=== PATIENT | female | born 1960 | race Caucasian/White ===

== ENCOUNTER 2025-03-02 10:13 | Outpatient (REF) | payer MEDICARE, SELFPAY ==
--- OUTSIDE RECORDS SUMMARY | 2025-03-02 09:30 | XMS_ITS | Encounter Summary ---
Author Organization [employer] Address [address] [place] [address] 7 [place] [address] Care Team Providers Care Logging Truck Driver Name Role Phone Fang Young MD Primary Care Provider [phone] Reason for Referral * Imaging (Routine) - Closed Specialty Diagnoses / Procedures Referred By Leonor bui Referred To Contact Radiology Diagnoses Encounter for screening mammogram for malignant neoplasm of breast Procedures BI Mammogram Screening Tomosynthesis Bilateral Fang Young MD [address] [place] [address] Phone: tel: fax: [address] Phone: tel: fax: Referral ID Status Reason Start Date Expiration Date Visits Re quested Visits Authorized [id number] Closed 03/02/2025 03/02/2026 1 1 * Consultation (Routine) - Authorized Specialty Diagnoses / Procedures Referred By Leonor bui Referred To Contact Nutrition Diagnoses Class 2 severe obesity due to excess calories with serious comorbidity and body mass index (BMI) of 36.0 to 36.9 in adult Fang Young MD [address] [place] [address] Phone: tel: fax: Referral ID Status Reason Start Date Expiration Date Visits Requested Visits Authorized [id number] Authorized Consult and Treat 03/02/2025 03/02/2026 1 1 * Consultation (Routine) - Closed Specialty Diagnoses / Procedures Referred By Contfredrick t Referred To Contact Addiction Medicine Diagnoses Alcohol use disorder, moderate, in early remission (CMS/HCC) (HCC) Fang Young MD [address] [place] [address] Phone: tel: fax: Referral ID Status Reason Start Date Expiration Date V isits Requested Visits Authorized [id number] Closed Specialty Services Required 03/02/2025 03/02/2026 1 1 Reason for Visit * Reason Comments annual wellness exam Encounter Details Date Type Department Care Team ([facility] Contact Info) Description 03/02/2025 9:30 AM EST Office Visit [facility] [address] [place] [address] Fang Young MD [address] [place] [id number] Hypertension, unspecified type (Primary Dx); Alcohol use disorder, moderate, in early remission (CMS/HCC) (HCC); Anxiety; Dietary counseling; Exercise counseling; Class 2 severe obesity due to excess calories with serious comorbidity and body mass index (BMI) of 36.0 to 36.9 in adult; Benign paroxysmal positional vertigo, unspecified laterality; Encounter for screening mammogram for malignant neoplasm of breast; Encounter for immunization Social History Tobacco Use Types Packs/Day Years Used Date Smoking Tobacco: Never Alcohol Use Standard Drinks/Week Comments Yes 0 (1 standard drink = 0.6 oz pur e alcohol) Alcohol Answer Date Recorded How often do you have a drink containing alcohol ? 1 03/02/2025 How many drinks containing a lcohol do you have on a typical day when you are drinking? 0 03/02/2025 How often do you have six or more drinks on one occasion? 0 03/02/2025 Depression Answer Date Recorded Patient Health Questionnaire-9 Score 1 03/02/2025 Patient Health Questionnaire-9 Score 1 03/02/2025 Last PHQ-9: Questionnaire Data Not on file 1 05/02/2024 Housing Stability Answer Date Recorded What is your housing situation today? I have lakeisha deleon 11/09/[address] you li ve. Do you have problems with any of the following? None of the above 11/09/2024 Food Insecurity Answer Date Recorded Within the past 12 months, y ou worried that your food would run out before you got money to buy more: Never True 11/09/2024 Within the past 12 months,th e food you bought just didn't last and you didn't have enough money to get more: Never True Transportation Answer Date Recorded In the past 12 months, has l ack of transportation kept you from medical appts, meetings, work or from getting things needed for daily living? No 11/09/2024 Utilities Answer Date Recorded In the past 12 months, has t he electric, gas, oil or water company threatened to shut off services in your home? No 11/09/2024 Depression Answer Date Recorded Patient Health Questionnaire-2 Score 0 03/02/2025 Internet Access Answer Date Recorded Internet Access Q1 Yes 11/09/2024 Internet Access Q2 Not on file 11/09/2024 Comments Unknown Sex and Gender Information Value Date Recorded Sex Assigned at Female 02/19/2022 10:30 AM EDT Legal Sex Female 10:30 AM EDT Gender Identity Female 02/19/2022 10:30 AM EDT Sexual Orientation Don't know 02/19/2022 10 :30 AM EDT documented as of this encounter Last Filed Vital Signs Vital Sign Reading Time Taken Comments Blood Pressure 138/90 03/02/2025 10:13 AM EST Pulse 82 03/02/2025 9:37 AM EST Temperature - - Respiratory Rate 19 03/02/2025 9:37 AM EST Oxygen Saturation 98% 03/02/2025 9:37 AM EST Inhaled Oxygen Concentration - - Weight 92.5 kg (204 lb) 03/02/2025 9:37 AM EST Height 160 cm (5' 3 ) 03/02/2025 9:37 AM EST Body Mass Index 36.14 03/02/2025 9:37 AM EST documented in this encounter Functional Status * Over the past 2 weeks, how often have you been bothered by any of the following problems? Question Answer Date of Assessment Author Patient Health Questionnaire-2 Score 0 02/20 10:02 AM Kendy Espino MA * Little interest or pleasure in doing things Answer Date of Assessment Author Not at all 03/02/2025 10:02 AM Christina Espino MA * Feeling down, depressed, or hopeless Answer Date of Assessment Author Not at all 03/02/2025 10:02 AM Christina Espino MA * Trouble falling or staying asleep, or sleeping too much Answer Date of Assessment Author Several days 03/02/2025 10:02 AM Christina Espino MA * Feeling tired or having little energy Answer Date of Assessment Author Not at all 03/02/2025 10:02 AM Christina Espino MA * Poor appetite or overeating Answer Date of Assessment Author Not at all 03/02/2025 10:02 AM Christina Espino MA * Feeling bad about yourself - or that you are a failure or have let yourself or your family down Answer Date of Assessment Author Not at all 03/02/2025 10:02 AM Christina Espino MA * Trouble concentrating on things, such as reading the newspaper or watching television Answer Date of Assessment Author Not at all 03/02/2025 10:02 AM Christina Espino MA * Moving or speaking so slowly that other people could have noticed? Or the opposite - being so fidgety or restless that you have been moving around a lot more than usual. Answer Date of Assessment Author Not at all 03/02/2025 10:02 AM Christina Espino MA * Thoughts that you would be better off or hurting yourself in some way Answer Date of Assessment Author Not at all 03/02/2025 10:02 AM Christina Espino MA * Patient Health Questionnaire-9 Score Answer Date of Assessment Author 1 03/02/2025 10:02 AM Christina Espino MA * How difficult have these problems made it for you to do your work, take care of things at home, or get along with other people? Answer Date of Assessment Author Not difficult at all 03/02/2025 10:02 AM Kendy Hamilton MA documented as of this encounter Plan of Treatment Upcoming Encounters Date Type Department Care Team (Late st Contact Info) Description 03/09/2025 11:00 AM EST Procedure Visit [facility] [address] [place] [address] Susan Kim MD [address] [place] [address] 03/15/2025 9:15 AM EST Office Visit [facility] [address] [place] [address] Calin Vega MD [address] [place] [address] Scheduled Orders Name Type Priority Associated Diagnoses Orde r Schedule CBC auto differential Lab Routine Hypertension, unspecified type Expected: 03/02/2025 (Approximate), Expires: 03/02/2026 Comprehensive Metabolic Panel Lab Routine Hypertension, unspecified type Expected: 03/02/2025 (Approximate), Expires: 03/02/2026 Lipid Panel, Standard Lab Routine Hypertension, unspecified type Expected: 03/02/2025 (Approximate), Expires: 03/02/2026 TSH with Reflex to Free T4 Lab Routine Hypertension, unspecified type Expected: 03/02/2025 (Approximate), Expires: 03/02/2026 Magnesium Lab Routine Hypertension, unspecified type Alcohol use disorder, moderate, in early remission (CMS/HCC) (HCC) Expected: 03/02/2025, Expires: 03/02/2026 Vitamin B12/Folate, Serum Panel Lab Routine Alcohol use disorder, moderate, in early remission (CMS/HCC) (HCC) Expected: 03/02/2025, Expires: 03/02/2026 Vitamin B1 Lab Routine Alcohol use disorder, moderate, in early remission (CMS/HCC) (HCC) Expected: 03/02/2025 (Approximate), Expires: 03/02/2026 BI Mammogram Screening Tomosynthesis Bilateral Imaging Routine Encounter for screening mammogram for malignant neoplasm of breast Expected: 03/02/2025, Expires: 05/02/2026 Scheduled Referrals Name Type Priority Associated Diagnoses Orde r Schedule Referral to [facility] Alcohol Use Disease Outpatient Referral Routine Alcohol use disorder, moderate, in early remission (CMS/HCC) (HCC) Expected: 03/02/2025 (Approximate), Expires: 03/02/2026 Referral to Nutrition Therapy Outpatient Referral Routine Class 2 severe obesity due to excess calories with serious comorbidity and body mass index (BMI) of 36.0 to 36.9 in adult Expected: 03/02/2025 (Approximate), Expires: 03/02/2026 documented as of this encounter Visit Diagnoses Diagnosis Hypertension, unspecified type- Primary Alcohol use disorder, moderate, in early remission ([facility]) ([facility]) Anxiety Anxiety state, unspecified Dietary counseling Dietary surveillance and counseling Exercise counseling Class 2 severe obesity due to excess calories with serious comorbidity and body mass index (BMI) of 36.0 to 36.9 in adult Benign paroxysmal positional vertigo, unspecified laterality Encounter for screening mammogram for malignant neoplasm of breast Encounter for immunization documented in this encounter Additional Health Concerns Assessment Noted Time PHQ-9 Depression Total Score: 1 03/02/20 25 10:02 AM EST documented as of this encounter Care Teams Logging Truck Driver Relationship Specialty Start Date End Date Fang Young MD [address] [place] [id number] PCP - General Internal Medicine 10/17/15 documented as of this encounter
--- OUTSIDE RECORDS SUMMARY | 2025-03-02 11:47 | XMS_ITS | Encounter Summary ---
Author Organization [employer] Address [address] [facility] [address] [place] [address] Care Team Providers Care Brattice Builder Name Role Phone Fang Young MD Primary Care Provider [phone] Encounter Details Date Type Department Care Team (Late st Contact Info) Description 11/18/2023 Orders Only [facility] [address] [place] [address] ProviderShelbie MD Social History Tobacco Use Types Packs/Day Years Used Date Smoking Tobacco: Unknown Alcohol Use Standard Drinks/Week Comments Yes 0 (1 standard drink = 0.6 oz pur e alcohol) Depression Answer Date Recorded Patient Health Questionnaire-9 Score 8 08/27/2022 Housing Stability Answer Date Recorded What is your housing situation today? I have lakeisha deleon 02/14/[address] you li ve. Do you have problems with any of the following? None of the above 02/14/2023 Food Insecurity Answer Date Recorded Within the past 12 months, y ou worried that your food would run out before you got money to buy more: Never True 02/14/2023 Within the past 12 months,th e food you bought just didn't last and you didn't have enough money to get more: Never True Transportation Answer Date Recorded In the past 12 months, has l ack of transportation kept you from medical appts, meetings, work or from getting things needed for daily living? No 02/14/2023 Utilities Answer Date Recorded In the past 12 months, has t he electric, gas, oil or water company threatened to shut off services in your home? No 02/14/2023 Depression Answer Date Recorded Patient Health Questionnaire-2 Score 3 08/27/2022 Comments Unknown Sex and Gender Information Value Date Recorded Sex Assigned at Female 02/19/2022 10:30 AM EDT Legal Sex Female 10:30 AM EDT Gender Identity Female 02/19/2022 10:30 AM EDT Sexual Orientation Don't know 02/19/2022 10 :30 AM EDT documented as of this encounter Plan of Treatment Upcoming Encounters Date Type Department Care Team (Late st Contact Info) Description 03/09/2025 11:00 AM EST Procedure Visit [facility] [address] [place] [address] Susan Kim MD [address] [place] [address] 03/15/2025 9:15 AM EST Office Visit [facility] [address] [place], [place] [phone] Calin Vega MD [address] [place], [place] [phone] documented as of this encounter Procedures Procedure Name Priority Date/Time Associated Diagnosis Comments XR CHEST PORTABLE Routine 11/17/2023 9:26 AM EDT documented in this encounter Results * XR Chest Portable (11/17/2023 9:26 AM EDT) Anatomical Region Laterality Modality Radiographic Isadora ging us Historical Provider MD SHIRLEY XR PROCEDURES Final R esult documented in this encounter Visit Diagnoses Not on filedocumented in this encounter Additional Health Concerns Assessment Noted Time PHQ-9 Depression Total Score: 8 08/28/19 23 11:00 AM EDT documented as of this encounter Care Teams Brattice Builder Relationship Specialty Start Date End Date Fang Young MD [address] [place] [address] PCP - General Internal Medicine 10/17/15 documented as of this encounter
--- OUTSIDE RECORDS SUMMARY | 2025-03-02 11:47 | XMS_ITS | Encounter Summary ---
Author Organization [employer] Address [address] [facility] [address] [place] [address] Care Team Providers Care Material Spreader Name Role Phone Fang Young MD Primary Care Provider [phone] Encounter Details Date Type Department Care Team (Late st Contact Info) Description 08/26/2023 Orders Only [facility] [address] [place] [address] ProviderShelbie MD Social History Tobacco Use Types [...] Description 03/09/2025 11:00 AM EST Procedure Visit [facility] [address] [place] [address] Susan Kim MD [address] [place] [address] 03/15/2025 9:15 AM EST Office Visit [facility] [address] [place], [place] [phone] Calin Vega MD [address] [place], [place] [phone] documented as of this encounter Procedures Procedure Name Priority Date/Time Associated Diagnosis Comments XR CHEST 2 VIEWS Routine 08/25/2023 9:18 AM EDT documented in this encounter Results * XR Chest 2 Views (08/25/2023 9:18 AM EDT) Anatomical Region Laterality Modality Chest Radiographic Isadora ging us Historical Provider MD SHIRLEY XR PROCEDURES Final R esult documented in this encounter Visit Diagnoses Not on filedocumented in this encounter Additional Health Concerns Assessment Noted Time PHQ-9 Depression Total Score: 8 08/28/19 23 11:00 AM EDT documented as of this encounter Care Teams Material Spreader Relationship Specialty Start Date End Date Fang Young MD [address] [place] [address] PCP - General Internal Medicine 10/17/15 documented as of this encounter
--- OUTSIDE RECORDS SUMMARY | 2025-03-02 11:47 | XMS_ITS | Clinical Summary ---
Author Organization [facility] Address [address] [place] [address] Phone Care Team Providers Care Tariff Supervisor Name Role Phone Fang Young MD Primary Care Provider [phone] Allergies Active Allergy Reactions Criticality Noted Date Comments Nutritional Supplement-Fiber 025 Cephalexin Anaphylaxis High 01/12/2025 Penicillins Anaphylaxis High 10/12/2024 Medications ondansetron ODT (ZOFRAN-ODT) 4 mg disintegrating tablet Let 1 tablet dissolve under the tongue three times daily as needed for nausea or vomiting. 35.714 tablet Active Encounters Date Type Department Care Team Description 01/12/2025 1:46 PM EDT - 01/12/2025 8:08 PM EDT Emergency [facility] Emergency [address] [place] [id number] Antony Bojorquez MD Goebel, Mathew, MD Generalized abdominal pain (Primary Dx); Hypokalemia; Hypomagnesemia; History of alcohol use; Diarrhea, unspecified type Discharge Disposition: Home or Self Care from Last 3 Months Surgical History Surgery Date Site/Laterality Comments TUBAL LIGATION PROCEDURE: HISTORICAL TUBAL LIGATION OTHER SURGICAL HISTORY 06/27 PROCEDURE: MAMMOGRAM Medical History Medical History Date Comments Allergic rhinitis, cause unspecified DX:Allergic rhinitis, cause unspecified Alcohol abuse, in remission DX:A lcohol abuse, in remission Sprain of lumbar region DX:Sprai n of lumbar region; COMMENT: episodic Obesity 07/18/2007 DX:Obesity Migraine 07/18/2007 DX:Migraine Hypercholesteremia 07/24/2007 DX:Hyperchole steremia Family History Medical History Relation Name Comments Diabetes Father Diabetes Mother heart valve rep lacement Relation Name Status Comments Father Mother Social History Tobacco Use Types Packs/Day Years Used Date Smoking Tobacco: Every Day Cigarettes Alcohol Use Standard Drinks/Week Comments No 0 (1 standard drink = 0.6 oz pur e alcohol) Comments Unknown Sex and Gender Information Value Date Recorded Sex Assigned at Not on file Legal Sex Female 6:39 PM EST Gender Identity Not on file Sexual Orientation Not on file Obstetrics History Last Filed Vital Signs Vital Sign Reading Time Taken Comments Blood Pressure 133/90 01/12/2025 7:51 PM EDT Pulse 86 01/12/2025 7:51 PM EDT Temperature 36.7 C (98.1 F) 01/12/2025 7:51 PM EDT Respiratory Rate 16 01/12/2025 7:51 PM EDT Oxygen Saturation 98% 01/12/2025 7:51 PM EDT Inhaled Oxygen Concentration - - Weight 81.6 kg (180 lb) 01/12/2025 12:24 PM EDT Height 160 cm (5' 3 ) 01/12/2025 12:24 PM EDT Body Mass Index 31.89 01/12/2025 12:24 PM EDT Plan of Treatment Health Maintenance Due Date Last Done Comments Breast Cancer Screening 1959 Colorectal Cancer Screening: Colonoscopy 1959 Hepatitis A Vaccines (1 of 2 - Risk 2-dose series) 1978 Pneumococcal Vaccine: 50+ Years (1 of 2 - PCV) 1978 Cervical Cancer Screening: P ap Smear 1980 RSV Immunization Adult Patients (1 - Risk 50-74 years 1-dose series) 2009 Zoster Vaccines (1 of 2) 2009 Cholesterol Screening (Lipid Panel) 03/24/2022 Medicare Annual Wellness Visit 03/24/2022 Osteoporosis Screening (Bone Density Screening) 03/24/2022 Social Influencers of Health Screening 03/24/2022 Falls Risk Assessment 2024 Depression Screening 04/22/2024 COVID-19 Vaccine (3 - 2024-2 6 season) 2024 04/03/2022, 03/13/2022 Influenza Vaccine (#1) 2024 03/13/2022 Hypertension/CHF/CAD Annual BMP Blood Test 01/12/2026 01/12/2025 DTaP,Tdap,and Td Vaccines (4 - Td or Tdap) 07/01/2031 06/30/2021, 08/29/2019, 03/22/2007 Hepatitis C Screening Completed 08/27/2022 HIB Vaccines Aged Out No longer eligi ble based on patient's age to complete this topic HPV Vaccines Aged Out No longer eligi ble based on patient's age to complete this topic Hepatitis B Vaccines Aged Out No long er eligible based on patient's age to complete this topic IPV Vaccines Aged Out No longer eligi ble based on patient's age to complete this topic MMR Vaccines Aged Out No longer eligi ble based on patient's age to complete this topic Meningococcal ACWY Vaccine Aged Out N o longer eligible based on patient's age to complete this topic Meningococcal B Vaccine Aged Out No l onger eligible based on patient's age to complete this topic RSV Immunization Patients Under 20 months Aged Out No longer eligible b ased on patient's age to complete this topic Varicella Vaccines Aged Out No longer eligible based on patient's age to complete this topic Procedures Procedure Name Priority Date/Time Associated Diagnosis Comments ECG ANNOTATED 01/13/2025 CT ANGIO ABDOMEN PELVIS WO AND/OR W CONTRAST STAT 01/12/2025 3:50 PM EDT Generalized abdominal pain RESPIRATORY VIRUS PANEL MOLECULAR STUDY STAT 01/12/2025 2:41 PM EDT ETHANOL Add-On 01/12/2025 2:25 PM EDT TROPONIN I HIGH SENSITIVITY Timed 01/12/2025 2:25 PM EDT CBC WITH AUTO DIFFERENTIAL STAT 01/12/2025 2:25 PM EDT MAGNESIUM STAT 01/12/2025 2:25 PM EDT LIPASE STAT 01/12/2025 2:25 PM EDT COMPREHENSIVE METABOLIC PANEL STAT 01/12/2025 2:25 PM EDT CBC AND DIFFERENTIAL STAT 01/12/2025 2:25 PM EDT ECG 12-LEAD STAT 01/12/2025 1:20 PM EDT from Last 3 Months Results * ECG-Annotated (01/13/2025) us Provider Onbase MD ECG ORDERABLES Final Result * CT Angio Abdomen Pelvis wo and/or w Contrast (01/12/2025 3:50 PM EDT) Anatomical Region Laterality Modality Body Computed Tomogra phy 01/12/2025 4:18 PM EDT Impressions 01/12/2025 4:28 PM EDT Impression: 1. Unremarkable abdominal CTA. Patent mesenteric vasculature. 2. No obstruction or other acute process involving the bowel identified. [employer] GOLDIE ([id number]) -------- FINAL REPORT -------- Dictated By: Mirian Lawson Dictated Date: 01/12/2025 16:18 ET Assigned Physician: Mirian Lawson Reviewed and Electronically Signed By: Mirian Lawson Signed Date: 01/12/2025 16:28 ET Workstation ID: [id number] Transcribed By: Self Edit Transcribed Date: 01/12/2025 16:18 ET Narrative 01/12/2025 4:28 PM EDT History: Mesenteric ischemia. Diffuse abdominal pain, acute, with nausea. Pain out of proportion to physical exam findings. Comparison: Noncontrast CT abdomen/pelvis 11/28/23, contrast-enhanced CT abdomen/pelvis 09/30/21 Technique: Helical volumetric imaging of the abdomen and pelvis was performed during the rapid, uneventful intravenous administration of 90 cc's Isovue-370, using the CT angiography protocol tailored for evaluation of the abdominal aorta and its branches. Coronal and sagittal reformatted images and maximum intensity pixel images were reviewed. Delayed, postcontrast images through the abdomen and pelvis were also obtained. DLP: 2265.70 mGy/cm [employer] Iterative reconstruction technique Findings: The abdominal aorta and its branches are well-opacified. The abdominal aorta is normal in caliber, with minimal mural calcification. No aneurysm or dissection is identified. The celiac, superior mesenteric, bilateral renal and inferior mesenteric arteries are patent. The right hepatic artery is replaced to the SMA, an anatomic variant. The distal branches of the mesenteric arteries appear to be well opacified as far distal as can be seen. These small vessels are partially obscured by motion artifact, however. The mesenteric veins are well opacified on the delayed series. Ancillary findings: The liver is normal in size and configuration. A 5 mm circumscribed round hypoattenuating lesion in the medial segment of the left hepatic lobe is stable dating back to 2021, considered benign, possibly a cyst. The portal and hepatic veins are patent. The gallbladder is physiologically distended. No evidence of biliary obstruction is seen. The spleen, pancreas and adrenal glands are unremarkable. The kidneys are normal in position and size, with symmetric, intact nephrograms and no evidence of hydronephrosis. An approximately 5 cm left upper pole renal cortical cyst is again seen. A subcentimeter circumscribed round hypoattenuating lesion in the lower pole left kidney is too small to accurately characterize but is without significant change from 2021. No free air or fluid is seen within the peritoneal cavity. The uterus and adnexa are grossly unremarkable for age. The urinary bladder appears normal. No evidence of bowel obstruction is seen. There are scattered colonic diverticula. No specific findings of diverticulitis are noted. The appendix is normal in caliber in the right lower quadrant. No small bowel wall thickening or dilatation is seen. There is no pneumatosis intestinalis. The mesenteric fat is preserved. Surgical hardware is partially imaged in the right proximal femur. Lumbar disc degenerative changes are noted. Procedure Note Mirian Lawson MD - 01/12/2025 History: Mesenteric ischemia. Diffuse abdominal pain, acute, with nausea.Pain out of proportion to physical exam findings. Comparison: Noncontrast CT abdomen/pelvis 11/28/23, contrast-enhanced CTabdomen/pelvis 09/30/21 Technique: Helical volumetric imaging of the abdomen and pelvis wasperformed during the rapid, uneventful intravenous administration of 90cc's Isovue-370, using the CT angiography protocol tailored for evaluationof the abdominal aorta and its branches. Coronal and sagittal reformattedimages and maximum intensity pixel images were reviewed. Delayed,postcontrast images through the abdomen and pelvis were also obtained. DLP: 2265.70 mGy/cm [employer] [place] V[place] Iterative reconstruction technique Findings: The abdominal aorta and its branches are well-opacified. The abdominalaorta is normal in caliber, with minimal mural calcification. No aneurysmor dissection is identified. The celiac, superior mesenteric, bilateralrenal and inferior mesenteric arteries are patent. The right hepaticartery is replaced to the SMA, an anatomic variant. The distal branches of the mesenteric arteries appear to be well opacifiedas far distal as can be seen. These small vessels are partially obscuredby motion artifact, however. The mesenteric veins are well opacified on the delayed series. Ancillary findings: The liver is normal in size and configuration. A 5 mm circumscribed roundhypoattenuating lesion in the medial segment of the left hepatic lobe isstable dating back to 2021, considered benign, possibly a cyst. The [place] hepatic veins are patent. The gallbladder is physiologicallydistended. No evidence of biliary obstruction is seen. The spleen, pancreas and adrenal glands are unremarkable. The kidneys are normal in position and size, with symmetric, intactnephrograms and no evidence of hydronephrosis. An approximately 5 cm leftupper pole renal cortical cyst is again seen. A subcentimetercircumscribed round hypoattenuating lesion in the lower pole left kidneyis too small to accurately characterize but is without significant changefrom 2021. No free air or fluid is seen within the peritoneal cavity. The uterus andadnexa are grossly unremarkable for age. The urinary bladder appearsnormal. No evidence of bowel obstruction is seen. There are scattered colonicdiverticula. No specific findings of diverticulitis are noted. Theappendix is normal in caliber in the right lower quadrant. No small bowelwall thickening or dilatation is seen. There is no pneumatosisintestinalis. The mesenteric fat is preserved. Surgical hardware is partially imaged in the right proximal femur. Lumbardisc degenerative changes are noted. IMPRESSION: Impression: 1. Unremarkable abdominal CTA. Patent mesenteric vasculature. 2. No obstruction or other acute process involving the bowel identified. [place] [employer] [place] ([id number]) -------- FINAL REPORT -------- Dictated By: Mirian Lawson Dictated Date: 01/12/2025 16:18 ET Assigned Physician: Mirian Lawson Reviewed and Electronically Signed By: Mirian Lawson Signed Date: 01/12/2025 16:28 ET Workstation ID: [id number] Transcribed By: Self Edit Transcribed Date: 01/12/2025 16:18 ET Antony Bojorquez MD IM CT PROCEDURES Final Result * Respiratory virus panel molecular study (01/12/2025 2:41 PM EDT) Pathologist [facility] Adenovirus Detection by PCR Not Detected Not Detected LAB MICROBIOLOGY METHOD 01/12/2025 3:43 PM EDT [facility] Influenza A PCR Not Detected Not Detected LAB MICROBIOLOGY METHOD 01/12/2025 3:43 PM EDT [facility] Influenza B PCR Not Detected Not Detected LAB MICROBIOLOGY METHOD 01/12/2025 3:43 PM EDT [facility] Coronavirus 229E Not Detected Not Detected LAB MICROBIOLOGY METHOD 01/12/2025 3:43 PM EDT [facility] Coronavirus HKU1 Not Detected Not Detected LAB MICROBIOLOGY METHOD 01/12/2025 3:43 PM EDT [facility] Coronavirus OC43 Not Detected Not Detected LAB MICROBIOLOGY METHOD 01/12/2025 3:43 PM EDT [facility] Coronavirus NL63 Not Detected Not Detected LAB MICROBIOLOGY METHOD 01/12/2025 3:43 PM EDT [facility] Parainfluenza Virus 1 Not Detected Not Detected LAB MICROBIOLOGY METHOD 01/12/2025 3:43 PM EDT [facility] Parainfluenza Virus 2 Not Detected Not Detected LAB MICROBIOLOGY METHOD 01/12/2025 3:43 PM EDT [facility] Parainfluenza Virus 3 Not Detected Not Detected LAB MICROBIOLOGY METHOD 01/12/2025 3:43 PM EDT [facility] Parainfluenza Virus 4 Not Detected Not Detected LAB MICROBIOLOGY METHOD 01/12/2025 3:43 PM EDT [facility] RSV PCR Not Detected Not Detected LAB MICROBIOLOGY METHOD 01/12/2025 3:43 PM EDT [facility] Human Metapneumovirus A and B Not Detected Not Detected LAB MICROBIOLOGY METHOD 01/12/2025 3:43 PM EDT [facility] Rhinovirus/Entero virus Not Detected Not Detected LAB MICROBIOLOGY METHOD 01/12/2025 3:43 PM EDT [facility] Bordetella pertussis Not Detected Not Detected LAB MICROBIOLOGY METHOD 01/12/2025 3:43 PM EDT [facility] Bordetella parapertussis Not Detected Not Detected LAB MICROBIOLOGY METHOD 01/12/2025 3:43 PM EDT [facility] Mycoplasma pneumo by PCR Not Detected Not Detected LAB MICROBIOLOGY METHOD 01/12/2025 3:43 PM EDT [facility] Chlamydia pneumoniae Not Detected Not Detected LAB MICROBIOLOGY METHOD 01/12/2025 3:43 PM EDT [facility] SARS COV-2 Not Detected Not Detected LAB MICROBIOLOGY METHOD 01/12/2025 3:43 PM EDT [facility] Swab Both anterior nares / Unknown Non-blood Collection / Unknown 01/12/2025 2:41 PM EDT 01/12/2025 2:51 PM EDT Narrative [facility] - 01/12/2025 3:43 PM EDT Testing was performed using the [employer] Respiratory Pathogen PCR Assay. All results must be correlated with the clinical findings. Results should not be used as the sole basis for diagnosis. False Negative results may occur from the presence of sequence variants in the region targeted by the assay or the presence of inhibitors. Results may be affected by concurrent antiviral/antimicrobial therapy or levels of organisms that are below the limit of detection. us Antony Bojorquez MD LAB MICROBIOLOGY - GENER AL ORDERABLES Final Result [facility] [address] [place] [address], [place] [phone] * Troponin I high sensitivity (01/12/2025 2:25 PM EDT) [facility] High Sensitivity Troponin I 6 <=54 ng/L LAB CHEMISTRY METHOD 01/12/2025 3:08 PM EDT [facility] Blood Venous blood specimen / Unknown Venipuncture / Unknown 01/12/2025 2:25 PM EDT 01/12/2025 2:40 PM EDT [facility] - 01/12/2025 3:08 PM EDT High levels of biotin in samples may falsely decrease hsTroponin values. Use caution when interpreting hsTroponin results in patients taking biotin who exhibit renal impairment (eGFR <60) or in patients taking more than 20 mg/day of biotin. Antony Bojorquez MD LAB BLOOD ORDERABLES Fin al Result [facility] [address] [place] [address], [place] [phone] * (ABNORMAL) CBC auto differential (01/12/2025 2:25 PM EDT) [facility] WBC 8.4 4.8 - 10.8 K/mcL LAB HEMETOLOGY METHOD 01/12/2025 2:48 PM EDT [facility] RBC 4.50 3.80 - 4.80 M/mcL LAB HEMETOLOGY METHOD 01/12/2025 2:48 PM EDT [facility] Hemoglobin 14.9 11.5 - 16.0 g/dL LAB HEMETOLOGY METHOD 01/12/2025 2:48 PM EDT [facility] Hematocrit 43.3 35.0 - 47.0 % LAB HEMETOLOGY METHOD 01/12/2025 2:48 PM EDT [facility] MCV 95.6 79.0 - 98.0 FL LAB HEMETOLOGY METHOD 01/12/2025 2:48 PM EDT [facility] MCH 32.9(H) 27.0 - 32.0 pcg LAB HEMETOLOGY METHOD 01/12/2025 2:48 PM EDT [facility] MCHC 34.4 32.0 - 37.0 g/dL LAB HEMETOLOGY METHOD 01/12/2025 2:48 PM EDT [facility] RDW 15.9(H) 11.0 - 15.0 % LAB HEMETOLOGY METHOD 01/12/2025 2:48 PM EDT [facility] Platelets 265 130 - 400 K/mcL LAB HEMETOLOGY METHOD 01/12/2025 2:48 PM EDT [facility] MPV 9.4 7.0 - 11.0 FL LAB HEMETOLOGY METHOD 01/12/2025 2:48 PM EDT [facility] NRBC 0.0 <1.0 % LAB HEMETOLOGY METHOD 01/12/2025 2:48 PM EDT [facility] NRBC Absolute 0.00 <0.10 K/mcL LAB HEMETOLOGY METHOD 01/12/2025 2:48 PM EDT [facility] Neutrophils Relative 71.8 % LAB HEMETOLOGY METHOD 01/12/2025 2:48 PM EDT [facility] Lymphocytes Relative 16.8 % LAB HEMETOLOGY METHOD 01/12/2025 2:48 PM EDT [facility] Monocytes Relative 9.6 % LAB HEMETOLOGY METHOD 01/12/2025 2:48 PM EDT [facility] Eosinophils Relative 0.8 % [facility] Basophils Relative 0.4 % LAB HEMETOLOGY METHOD 01/12/2025 2:48 PM EDT [facility] Immature Granulocytes Relative 0.6 % LAB HEMETOLOGY METHOD 01/12/2025 2:48 PM EDT [facility] Neutrophils Absolute 6.04 1.50 - 7.00 K/mcL LAB HEMETOLOGY METHOD 01/12/2025 2:48 PM EDT [facility] Lymphocytes Absolute 1.41 1.00 - 5.00 K/mcL LAB HEMETOLOGY METHOD 01/12/2025 2:48 PM EDT [facility] Monocytes Absolute 0.81 0.20 - 1.00 K/mcL LAB HEMETOLOGY METHOD 01/12/2025 2:48 PM EDT [facility] Eosinophils Absolute 0.07 0.00 - 0.50 K/mcL LAB HEMETOLOGY METHOD 01/12/2025 2:48 PM EDT [facility] Basophils Absolute 0.03 0.00 - 0.20 K/mcL LAB HEMETOLOGY METHOD 01/12/2025 2:48 PM EDT [facility] Immature Granulocytes Absolute 0.05(H) 0.00 - 0.03 K/mcL LAB HEMETOLOGY METHOD 01/12/2025 2:48 PM EDT [facility] Blood Venous blood specimen / Unknown Venipuncture / Unknown 01/12/2025 2:25 PM EDT 01/12/2025 2:40 PM EDT us Antony Bojorquez MD LAB BLOOD ORDERABLES Fin al Result [facility] [address] [place] [address], * (ABNORMAL) Magnesium (01/12/2025 2:25 PM EDT) Magnesium 1.2(L) 1.9 - 2.6 mg/dL LAB CHEMISTRY METHOD 01/12/2025 3:09 PM EDT [facility] Blood Venous blood specimen / Unknown Venipuncture / Unknown 01/12/2025 2:25 PM EDT 01/12/2025 2:40 PM EDT us Antony Bojorquez MD LAB BLOOD ORDERABLES Fin al Result Performing Organization Address [facility]/ZIP Co de Phone Number [facility] [address] [place] [address], [place] [phone] * Lipase (01/12/2025 2:25 PM EDT) [facility] Lipase 34 13 - 75 unit/L LAB CHEMISTRY METHOD 01/12/2025 3:09 PM EDT [facility] Blood Venous blood specimen / Unknown Venipuncture / Unknown 01/12/2025 2:25 PM EDT 01/12/2025 2:40 PM EDT us Antony Bojorquez MD LAB BLOOD ORDERABLES Fin al Result Performing Organization Address [facility]/ZIP Mi de Phone Number [facility] [address] [place] [address], [place] [phone] * Ethanol (01/12/2025 2:25 PM EDT) [facility] Ethanol Level 4 0 - 10 mg/dL LAB CHEMISTRY METHOD 01/12/2025 3:26 PM EDT [facility] Blood Venous blood specimen / Unknown Venipuncture / Unknown 01/12/2025 2:25 PM EDT 01/12/2025 2:40 PM EDT us Antony Bojorquez MD LAB BLOOD ORDERABLES Fin al Result Performing Organization Address City/[facility]/ZIP Co de Phone Number [facility] [address] [place] [address], [place] [phone] * (ABNORMAL) Comprehensive metabolic panel (01/12/2025 2:25 PM EDT) Sodium 136 133 - 145 mmol/L LAB CHEMISTRY METHOD 01/12/2025 3:26 PM [facility] Potassium 2.6(LL) 3.5 - 5.5 mmol/L LAB CHEMISTRY METHOD 01/12/2025 3:26 PM [facility] Comment:Results verified by repeat testing Chloride 94(L) 96 - 110 mmol/L LAB CHEMISTRY METHOD 01/12/2025 3:26 PM [facility] CO2 29 21 - 32 mmol/L LAB CHEMISTRY METHOD 01/12/2025 3:26 PM [facility] Anion Gap 13(H) 3 - 11 LAB CHEMISTRY METHOD 01/12/2025 3:26 PM [facility] Glucose 112(H) 70 - 100 mg/dL LAB CHEMISTRY METHOD 01/12/2025 3:26 PM [facility] BUN 10 5 - 25 mg/dL LAB CHEMISTRY METHOD 01/12/2025 3:26 PM [facility] Creatinine 1.57(H) 0.50 - 1.10 mg/dL LAB CHEMISTRY METHOD 01/12/2025 3:26 PM [facility] eGFR 36(L) >=60 mL/min/1. 73m2 LAB CHEMISTRY METHOD 01/12/2025 3:26 PM [facility] Comment:Calculation based on the Chronic Kidney Disease Epidemiology Collaboration (CKD-EPI) equation refit without adjustment for race. BUN/Creatinine Ratio 6.4 LAB CHEMISTRY METHOD 01/12/2025 3:26 PM [facility] Calcium 8.9 8.5 - 10.5 mg/dL LAB CHEMISTRY METHOD 01/12/2025 3:26 PM [facility] AST (SGOT) 29 10 - 42 unit/L LAB CHEMISTRY METHOD 01/12/2025 3:26 PM [facility] ALT (SGPT) 20 10 - 60 unit/L LAB CHEMISTRY METHOD 01/12/2025 3:26 PM EDT [facility] Alkaline Phosphatase 137(H) 42 - 121 unit/L LAB CHEMISTRY METHOD 01/12/2025 3:26 PM EDT [facility] Total Protein 8.0 6.0 - 8.0 g/dL LAB CHEMISTRY METHOD 01/12/2025 3:26 PM EDT [facility] Albumin 4.3 3.2 - 5.0 g/dL LAB CHEMISTRY METHOD 01/12/2025 3:26 PM EDT [facility] Total Bilirubin 2.0(H) 0.0 - 1.4 mg/dL LAB CHEMISTRY METHOD 01/12/2025 3:26 PM EDT [facility] Blood Venous blood specimen / Unknown Venipuncture / Unknown 01/12/2025 2:25 PM EDT 01/12/2025 2:40 PM EDT Antony Bojorquez MD LAB BLOOD ORDERABLES Fin al Result [facility] [address] [place] [address], [place] [phone] * ECG 12 lead (01/12/2025 1:20 PM EDT) Ventricular Rate ECG 94 BPM GEMUSE Atrial Rate 94 BPM GEMUSE QRS Duration 128 ms GEMUSE Q-T Interval 414 ms GEMUSE QTc 517 ms GEMUSE P Wave [place] 53 degrees GEMUSE R [place] 131 degrees GEMUSE T [place] 112 degrees GEMUSE ECG Interpretation Ventricular- paced rhythm with Fusion complexes Abnormal ECG When compared with ECG of 29-NOV-2023 09:05, Fusion complexes are now Present Confirmed by BHARATI MERCADO ([id number]) on 01/14/2025 10:35:15 AM GEMUSE 01/12/2025 1:20 PM EDT 01/14/2025 10:35 AM EDT us Antony Bojorquez MD ECG ORDERABLES Final Re sult GEMUSE from Last 3 Months Insurance [employer] MED[employer]ARE Care Teams Tariff Supervisor Relationship Specialty Start Date End Date Fang Young MD [address] [place] [address] PCP - General 02/23/15
--- OUTSIDE RECORDS SUMMARY | 2025-03-02 11:47 | XMS_ITS | Encounter Summary ---
Author Organization [employer] Address 75 [facility] 7t [place] [address] Care Team Providers Care Penciller Name Role Phone Fang Young MD Primary Care Provider [phone] Reason for Visit * Reason Onset Date Comments Med Refill 03/26/2024 Encounter Details Date Type Department Care Team (Late st Contact Info) Description 03/26/2024 Telephone [facility] MEDICINE [address] [place] [address] Fang Young MD [address] [place] [phone] Med Refill Social History Tobacco Use Types Packs/Day Years [...] t he electric, gas, oil or water Mytonomy threatened to shut off services in your [...] AM EDT documented as of this encounter Miscellaneous Notes * Telephone Encounter - Priscilla Rodas LPN - 03/26/2024 11:39 AM EST Please review request ,medication is not pended as it was renewed on 03.16.24 * Telephone Encounter - Nghia Salinas - 03/26/2024 11:23 AM EST TC from pt requesting medication refill. Medications needing refill: hydrOXYzine pamoate (Vistaril) 25 MG capsule To be sent to: [facility]/pharmacy #[id number] [place] [email or web address] documented in this encounter Plan of Treatment Upcoming Encounters Date Type Department Care Team (Late st Contact Info) Description 03/09/2025 11:00 AM EST Procedure Visit [facility] MED & PEDS [address] [place] [address] Susan Kim MD [address] [place] [address] 03/15/2025 9:15 AM EST Office Visit [facility] MED & PEDS [address] [place] [address] Calin Vega MD [address] [place] [address] documented as of this encounter Visit Diagnoses Not on filedocumented in this encounter Additional Health Concerns Assessment Noted Time PHQ-9 Depression Total Score: 8 08/28/19 23 11:00 AM EDT documented as of this encounter Care Teams Penciller Relationship Specialty Start Date End Date Fang Young MD [address] [place] [id number] PCP - General Internal Medicine 10/17/15 documented as of this encounter
--- OUTSIDE RECORDS SUMMARY | 2025-03-02 11:47 | XMS_ITS | Encounter Summary ---
Author Organization [employer] Address 75 [facility] 7t [place] [address] Care Team Providers Care Economic Consultant Name Role Phone Fang Young MD Primary Care Provider [phone] Encounter Details Date Type Department Care Team (Late st Contact Info) Description 12/10/2023 Orders Only [facility] MED & PEDS [address] [place] [address] Provider, MD Shelbie Social History Tobacco Use Types Packs/Day Years [...] 11:00 AM EST Procedure Visit [facility] MED & PEDS [address] [place] [address] Susan Kim MD [address] [place] [address] 03/15/2025 9:15 AM EST Office Visit [facility] MED & PEDS [address] [place], [place] [phone] Calin Vega MD [address] [place], [place] [phone] documented as of this encounter Procedures Procedure Name Priority Date/Time Associated Diagnosis Comments CT ABDOMEN PELVIS WO CONTRAST Routine 11/28/2023 9:31 AM EDT documented in this encounter Results * CT Abdomen Pelvis w/o Contrast (11/28/2023 9:31 AM EDT) Anatomical Region Laterality Modality Body, Pelvis, Abdomen Computed T omography us Historical Provider MD SHIRLEY CT PROCEDURES Final R esult documented in this encounter Visit Diagnoses Not on filedocumented in this encounter Additional Health Concerns Assessment Noted Time PHQ-9 Depression Total Score: 8 08/28/19 23 11:00 AM EDT documented as of this encounter Care Teams Economic Consultant Relationship Specialty Start Date End Date Fang Young MD [address] [place] [address] PCP - General Internal Medicine 10/17/15 documented as of this encounter
--- OUTSIDE RECORDS SUMMARY | 2025-03-02 11:47 | XMS_ITS | Encounter Summary ---
Author Organization [employer] Address 75 [facility] 7t [place] [address] Care Team Providers Care Tunnel Elastic Operator Chainstitch Name Role Phone Fang Young MD Primary Care Provider [phone] Encounter Details Date Type Department Care Team (Late st Contact Info) Description 11/28/2023 Orders Only [facility] [address] [place] [address] ProviderShelbie MD Social History Tobacco Use Types [...] Upcoming Encounters Date Type Department Care Team ([facility] st Contact Info) Description 03/09/2025 11:00 AM EST Procedure Visit [facility] MED & PEDS [address] [place] [address] Susan Kim MD 505 [place] [address] 03/15/2025 9:15 AM EST Office Visit [facility] MED & PEDS [address] [place], [place] [phone] Calin Vega MD [address] [place], [place] [phone] documented as of this encounter Procedures Procedure Name Priority Date/Time Associated Diagnosis Comments CT CHEST WO CONTRAST Routine 11/28/2023 3:51 PM EDT XR CHEST 2 VIEWS Routine 11/28/2023 1:44 PM EDT documented in this encounter Results * CT Chest w/o Contrast (11/28/2023 3:51 PM EDT) Anatomical Region Laterality Modality Body, Chest Computed Tomogra phy us Historical Provider MD SHIRLEY CT PROCEDURES Final R esult * XR Chest 2 Views (11/28/2023 1:44 PM EDT) Anatomical Region Laterality Modality Chest Radiographic Isadora ging us Historical Provider MD SHIRLEY XR PROCEDURES Final R esult documented in this encounter Visit Diagnoses Not on filedocumented in this encounter Additional Health Concerns Assessment Noted Time PHQ-9 Depression Total Score: 8 08/28/19 23 11:00 AM EDT documented as of this encounter Care Teams Tunnel Elastic Operator Chainstitch Relationship Specialty Start Date End Date Fang Young MD [address] [place] [address] PCP - General Internal Medicine 10/17/15 documented as of this encounter
--- OUTSIDE RECORDS SUMMARY | 2025-03-02 11:47 | XMS_ITS | Encounter Summary ---
Author Organization [employer] Address 75 [facility] 7t [place] [address] Care Team Providers Care Human Intelligence Name Role Phone Fang Young MD Primary Care Provider [phone] Encounter Details Date Type Department Care Team (Late st Contact Info) Description 03/27/[address] [facility] MED & PEDS [address] [place], [place] [phone] Fang Young MD 505 [place] [address] Anxiety (Primary Dx) Social History Tobacco Use Types Packs/Day Years [...] 11:00 AM EST Procedure Visit [facility] MED & PEDS [address] [place] [address] Susan Kim MD 505 [place] [address] 03/15/2025 9:15 AM EST Office Visit [facility] MED & PEDS [address] [place] [address] Calin Vega MD [address] [place] [address] documented as of this encounter Visit Diagnoses Diagnosis Anxiety- Primary Anxiety state, unspecified documented in this encounter Additional Health Concerns Assessment Noted Time PHQ-9 Depression Total Score: 8 08/28/19 23 11:00 AM EDT documented as of this encounter Care Teams Human Intelligence Relationship Specialty Start Date End Date Fang Young MD [address] [place] [address] PCP - General Internal Medicine 10/17/15 documented as of this encounter
--- OUTSIDE RECORDS SUMMARY | 2025-03-02 11:47 | XMS_ITS | Encounter Summary ---
Author Organization [employer] Address 75 [facility] 7t [place] [address] Care Team Providers Care Rewrite Editor Name Role Phone Fang Young MD Primary Care Provider [phone] Encounter Details Date Type Department Care Team (Late st Contact Info) Description 02/14/2023 Abstract [facility] MEDICINE [address] [place] [address] Fang Young MD [address] [place], [place] [phone] Social History Tobacco Use Types Packs/Day Years Used Date Smoking Tobacco: Unknown Alcohol Use Standard Drinks/Week Comments Yes 0 (1 standard drink = 0.6 oz pur e alcohol) Depression Answer Date Recorded Patient Health Questionnaire-9 Score 8 08/27/2022 Housing Stability Answer Date Recorded What is your housing situation today? I have lakeisharamon deleon 02/14/[address] you [...] Description 03/09/2025 11:00 AM EST Procedure Visit [facility] MED & PEDS [address] [place], [place] [phone] Susan Kim MD [address] [place], [place] [phone] 03/15/2025 9:15 AM EST Office Visit [facility] MED & PEDS [address] [place], [place] [phone] Calin Vega MD [address] [place] [phone] documented as of this encounter Procedures Procedure Name Priority Date/Time Associated Diagnosis Comments COLONOSCOPY Routine 03/22/2017 documented in this encounter Results * Colonoscopy (03/22/2017) Colonoscopy Normal Normal Narrative Karen Carter - 03/22/2017 Recommended 5 year follow up due to tubular adenoma us Historical Provider HEALTH MAINTENANCE Final Result documented in this encounter Visit Diagnoses Not on filedocumented in this encounter Additional Health Concerns Assessment Noted Time PHQ-9 Depression Total Score: 8 08/28/19 23 11:00 AM EDT documented as of this encounter Care Teams Rewrite Editor Relationship Specialty Start Date End Date Fang Young MD [address] [place], [place] [phone] PCP - General Internal Medicine 10/17/15 documented as of this encounter
--- OUTSIDE RECORDS SUMMARY | 2025-03-02 11:48 | XMS_ITS | Encounter Summary ---
Author Organization [employer] Address 75 [facility] 7 [place] [address] Care Team Providers Care Director Toxicology Name Role Phone Fang Young MD Primary Care Provider [phone] Reason for Visit * Reason Onset Date Comments Chart Prep 03/01/2025 Encounter Details Date Type Department Care Team ([facility] st Contact Info) Description 03/01/[address] [facility] MED & PEDS [address] [place], [place] [phone] Fang Young MD [address] [place] [address] Chart Prep Social History Tobacco Use Types Packs/Day Years [...] encounter Miscellaneous Notes * Telephone Encounter - Maria R Salinas [place] - 03/01/2025 11:41 AM EST Chart Prep Labs: not applicable Images: not applicable Referrals: not applicable Vaccines due: Covid, Flu, PCV20, Tdap, and Zoster Screenings: colonoscopy, mammogram, and pap smear Overdue care gaps: SBIRT, PHQ-9, and Tobacco documented in this encounter Plan of Treatment Upcoming Encounters Date Type Department Care Team ([facility] st Contact Info) Description 03/09/2025 11:00 AM EST Procedure Visit [facility] MED & PEDS [address] [place] [address] Susan Kim MD 505 [place] [address] 03/15/2025 9:15 AM EST Office Visit [facility] MED & PEDS [address] [place] [address] Calin Vega MD [address] [place] [address] [place] [address] documented as of this encounter Visit Diagnoses Not on filedocumented in this encounter Additional Health Concerns Assessment Noted Time PHQ-9 Depression Total Score: 8 08/28/19 23 11:00 AM EDT documented as of this encounter Care Teams Director Toxicology Relationship Specialty Start Date End Date Fang Young MD [address] [place] [address] PCP - General Internal Medicine 10/17/15 documented as of this encounter
--- OUTSIDE RECORDS SUMMARY | 2025-03-02 11:48 | XMS_ITS | Encounter Summary ---
Author Organization [employer] Address 75 [facility] 7t [place] [address] Care Team Providers Care Banking Supervisor Name Role Phone Fang Young MD Primary Care Provider [phone]- [phone] Encounter Details Date Type Department Care Team (Late st Contact Info) Description 10/16/2024 Orders Only [facility] MED & PEDS [address] [place], [place] [phone] Fang Young MD [address] [place] [address] Right wrist pain (Primary Dx) Social History Tobacco Use Types [...] Description 03/09/2025 11:00 AM EST Procedure Visit [facility] MED & PEDS [address] [place] [address] Susan Kim MD [address] [place], [place] [phone] 03/15/2025 9:15 AM EST Office Visit [facility] MED & PEDS [address] [place] [address] Calin Vega MD [address] [place] [address] Scheduled Orders Name Type Priority Associated Diagnoses Orde r Schedule XR Wrist 3+ Views Right Imaging Routine Right wrist pain Expected: 10/16/2024, Expires: 10/16/2025 documented as of this encounter Visit Diagnoses Diagnosis Right wrist pain- Primary Pain in joint, forearm documented in this encounter Additional Health Concerns Assessment Noted Time PHQ-9 Depression Total Score: 8 08/28/19 23 11:00 AM EDT documented as of this encounter Care Teams Banking Supervisor Relationship Specialty Start Date End Date Fang Young MD [address] [place] [address] PCP - General Internal Medicine 10/17/15 documented as of this encounter
--- OUTSIDE RECORDS SUMMARY | 2025-03-02 11:48 | XMS_ITS | Encounter Summary ---
Author Organization [employer] Address [address] [facility] 7t [place] [address] Care Team Providers Care Office Administrative Assistant Name Role Phone Fang Young MD Primary Care Provider [phone] Encounter Details Date Type Department Care Team (Late st Contact Info) Description 03/02/2025 Telephone [facility] MEDICINE [address] [place] [address] Lola [place]wood [place] Social History Tobacco Use Types Packs/Day Years [...] AM EDT documented as of this encounter Functional Status * Over the [...] [place] documented as of this encounter Miscellaneous Notes * Telephone Encounter - Lola [place] MA - 03/02/2025 11:10 AM EST Received AUD referral, called pt to offer appointment, pt agreed to AUD appointment at [facility] 03/15 at9:15. documented in this encounter Plan of Treatment Upcoming Encounters Date Type Department Care Team (Late st Contact Info) Description 03/09/2025 11:00 AM EST Procedure Visit [facility] MED & PEDS [address] [place] [address] Susan iKm MD [address] [place] [address] 03/15/2025 9:15 AM EST Office Visit [facility] MED & PEDS [address] [place] [address] Calin Vega MD [address] [place] [address] documented as of this encounter Visit Diagnoses Not on filedocumented in this encounter Additional Health Concerns Assessment Noted Time PHQ-9 Depression Total Score: 1 03/02/20 25 10:02 AM EST documented as of this encounter Care Teams Office Administrative Assistant Relationship Specialty Start Date End Date Fang Young MD [address] [place] [address] PCP - General Internal Medicine 10/17/15 documented as of this encounter
--- OUTSIDE RECORDS SUMMARY | 2025-03-02 11:48 | XMS_ITS | Encounter Summary ---
Author Organization [employer] Address [address] [facility] 7t [place] [address] Care Team Providers Care Blood Donor Recruiter Name Role Phone Fang Young MD Primary Care Provider [phone] Encounter Details Date Type Department Care Team (Late st Contact Info) Description 10/12/2024 Orders Only [facility] CH[facility] MED & PEDS [address] [place] [address] Provider, MD Shelbie Social History Tobacco Use [...] Description 03/09/2025 11:00 AM EST Procedure Visit [facility] MED & PEDS [address] [place] [address] Susan Kim MD [address] [place], [place] [phone] 03/15/2025 9:15 AM EST Office Visit [facility] MED & PEDS [address] [place], [place] [phone] Calin Vega MD [address] [place], [place] [phone] documented as of this encounter Procedures Procedure Name Priority Date/Time Associated Diagnosis Comments XR WRIST 3 OR MORE VIEWS RIGHT Routine 10/12/2024 10:20 AM EDT documented in this encounter Results * XR WRIST 3 OR MORE VIEWS RIGHT (10/12/2024 10:20 AM EDT) Anatomical Region Laterality Modality Radiographic Isadora ging Historical Provider MD SHIRLEY XR PROCEDURES Final R esult documented in this encounter Visit Diagnoses Not on filedocumented in this encounter Additional Health Concerns Assessment Noted Time PHQ-9 Depression Total Score: 8 08/28/19 23 11:00 AM EDT documented as of this encounter Care Teams Blood Donor Recruiter Relationship Specialty Start Date End Date Fang Young MD [address] [place] [address] PCP - General Internal Medicine 10/17/15 documented as of this encounter
--- OUTSIDE RECORDS SUMMARY | 2025-03-02 11:48 | XMS_ITS | Encounter Summary ---
Author Organization [employer] Address 75 [facility] 7t [place] [address] Care Team Providers Care Proofer Apprentice Name Role Phone Fang Young MD Primary Care Provider [phone] Encounter Details Date Type Department Care Team (Late st Contact Info) Description 01/13/2025 Orders Only [facility] [address] [place] [address] ProviderShelbie MD Social History Tobacco Use Types Packs/Day Years Used Date Smoking Tobacco: Never Alcohol Use Standard Drinks/Week Comments Yes 0 (1 standard drink = 0.6 oz pur e alcohol) Depression Answer Date Recorded Patient Health Questionnaire-9 Score 8 08/27/2022 Housing Stability Answer Date Recorded What is your housing situation today? I have lakeisha pancho 11/09/[address] you li [...] Recorded Patient Health Questionnaire-2 Score 3 08/27/2022 Internet Access Answer Date Recorded Internet Access [...] Description 03/09/2025 11:00 AM EST Procedure Visit [facility] MED & PEDS [address] [place], [place] [phone] Susan Kim MD [address] [place], [place] [phone] 03/15/2025 9:15 AM EST Office Visit [facility] MED & PEDS [address] [place], [place] [phone] Calin Vega MD [address] [place] [address] [phone] documented as of this encounter Procedures Procedure Name Priority Date/Time Associated Diagnosis Comments CT ANGIOGRAM ABDOMEN PELVIS W CONTRAST Routine 01/12/2025 3:33 PM EDT documented in this encounter Results * CT ANGIOGRAM ABDOMEN PELVIS W CONTRAST (01/12/2025 3:33 PM EDT) Anatomical Region Laterality Modality Body, Pelvis, Abdomen Computed T omography Historical Provider MD SHIRLEY CT PROCEDURES Final R esult documented in this encounter Visit Diagnoses Not on filedocumented in this encounter Additional Health Concerns Assessment Noted Time PHQ-9 Depression Total Score: 8 08/28/19 23 11:00 AM EDT documented as of this encounter Care Teams Proofer Apprentice Relationship Specialty Start Date End Date Fang Young MD [address] [place] [address] PCP - General Internal Medicine 10/17/15 documented as of this encounter
--- OUTSIDE RECORDS SUMMARY | 2025-03-02 11:48 | XMS_ITS | Clinical Summary ---
Author Organization [employer] Address [address] [facility] 7t [place] [address] Care Team Providers Care Client Application Support Engineer Name Role Phone Fang Young MD Primary Care Provider [phone] Allergies Active Allergy Reactions Criticality Noted Date Comments Aspirin Unknown 11/01/2015 Cephalexin Anaphylaxis High 11/01/2015 Penicillins Anaphylaxis High 11/01/2015 Medications * This document contains information received from the source organization and may not represent a complete record from that organization. Calcium Carb-Cholecalcife rol 500-10 MG-MCG chewable tablet CHEW 1 TABLET BY MOUTH DAILY 2 Active folic acid (Folvite) 1 MG tabletIndications :Alcohol use disorder, moderate (CMS/HCC) Take 1 tablet (1,000 mcg) by mouth in the morning. 30 tablet 3 3 Active magnesium 250 MG tabletIndications :Alcohol use disorder, moderate (CMS/HCC) Take 1 tablet (250 mg) by mouth in the morning. 30 tablet 3 3 Active Multiple Vitamin (Daily-Harriet) tabletIndications :Alcohol use disorder, moderate (CMS/HCC) Take 1 tablet by mouth in the morning. 30 tablet 3 3 Active thiamine (,Vitamin B-1,) 100 MG tabletIndications :Alcohol use disorder, moderate (CMS/HCC) Take 1 tablet (100 mg) by mouth in the morning. 30 tablet 3 3 Active fluticasone (Flonase Allergy Relief) 50 MCG/ACT nasal spray Administer 1 spray into each nostril in the morning for 14 days. Shake gently. Before first use, prime pump. After use, clean tip and replace cap. 16 g 3 Active LORazepam (Ativan) 0.5 MG tablet Take 1 tablet (0.5 mg) by mouth every 8 (eight) hours if needed for anxiety for up to 2 days. 6 tablet 4 Active omeprazole (PriLOSEC) [address] capsule Take 1 capsule by mouth Once per day. 4 Active hydrOXYzine pamoate (Vistaril) 50 MG capsule Take 1 capsule (50 mg) by mouth every 8 (eight) hours if needed for itching for up to 20 days. 60 capsule 4 Active hydrALAZINE (Apresoline) 10 MG tablet Take 1 tablet (10 mg) by mouth 2 times daily. 60 tablet 11 4 Active carvedilol (Coreg) 6.25 MG tabletIndications :Primary hypertension TAKE ONE TABLET TWICE DAILY WITH FOOD 60 tablet 5 5 Active hydrOXYzine pamoate (Vistaril) 25 MG capsuleIndication s:Anxiety TAKE 1 CAPSULE BY MOUTH EVERY 6 HOURS IF NEEDED FOR ANXIETY FOR UP TO 10 DAYS 540 capsule 1 5 Active Active Problems Problem Noted Date Diagnosed Date Renal cyst, acquired, left 11/28/2023 Overview (11/28/2023): CT scan abd/pelvis at [facility] on 11/28/23 Atelectasis of left lung 11/28/2023 Overview (11/28/2023): CT scan lungs at [facility] on 11/28/23 Closed fracture of multiple ribs of right side with routine healing 08/01/2023 Assessment & Plan (08/01/2023 12:04 PM EDT): 4-6th rib fracture, will prescribe oxycodone x10 days, continue ibuprofen, call back if not improving in 2 weeks Intertrigo 08/31/2022 Assessment & Plan (08/31/2022 11:35 AM EDT): Symptoms and from physical exam rash is consistent with intertrigo with satellite lesions with possible superinfection. ,no findings consistent for herpetic lesions. Pt is allergic to PNC and cephalosporins -advised to keep area below her breast dry -px clotrimazole BID x 21 days -x likely superinfection px bactrim BID x 7 days --to cover as well sinus infection--noted recent labs this month w normal cr and normal electrolytes -to schedule earlier visit w PCP if no improvement in next 7 to 10 days Sinusitis 08/31/2022 Assessment & Plan (08/31/2022 11:33 AM EDT): Pt w symptoms on 2 weeks of ongoing maxillary > frontal sinusitis Consistent w exam -ocean nasal spray prn -flonase BID x 14 days -covering w bactrim x skin infection but would have as well moderate coverage for her sinuses -to f w PCP if no improvement Alcohol use disorder, modera te, in early remission (CMS/HCC) 07/27/2022 Deep venous thrombosis 07/25/2020 Hypertension 02/12/2018 Assessment & Plan (08/01/2023 12:03 PM EDT): Elevated, but most likely due to pain, told to keep a bp log and call back if bp >140/90 more than 2 times a week Assessment & Plan (08/31/2022 11:29 AM EDT): Pt today here w elevated BP at 152/104 -pt states at home her BP is well controlled -taking carvedilol consistently -states today is feeling stress due to discussion with -advised to monitor home BP and if > 140/90 in several readings to schedule earlier visit w her PCP-Dr Young Anxiety 11/01/2015 Assessment & Plan (12/03/2023 1:33 PM EDT): Will prescribe hydroxyzine to be taken as needed, also will provide #4 pills of low dose ativan discussed risk of medication 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 Encounters Date Type Department Care Team Description 03/02/2025 9:30 AM EST Office Visit [facility] [address] [place] [address] Fang Young MD Hypertension, unspecified type (Primary Dx); Alcohol use disorder, moderate, in early remission (CMS/HCC) (HCC); Anxiety; Dietary counseling; Exercise counseling; Class 2 severe obesity due to excess calories with serious comorbidity and body mass index (BMI) of 36.0 to 36.9 in adult; Benign paroxysmal positional vertigo, unspecified laterality; Encounter for screening mammogram for malignant neoplasm of breast; Encounter for immunization 03/02/2025 Telephone [facility] [address] [place] [address] Lola Smallwood [place] 03/02/2025 Travel 03/01/2025 Telephone [facility] [address] [place] [address] Fang Young MD Chart Prep 01/15/2025 Orders Only [facility] [address] [place], [place] [phone] Shelbie Martinez MD 01/13/2025 Orders Only [facility] [address] [place], [place] [phone] Shelbie Martinez MD from Last 3 Months Immunizations Immunization Administration Dates Next Due Influenza injectable quadrivalent preservative f ree 03/13/2022 Influenza, High Dose Seasonal, Preservative Free 03/02/2025 TD (adult), 2 Lf tetanus tox oid, preservative free, adsorbed 03/22/2007 Tdap 06/30/2021,08/29/2019 Social History Tobacco Use Types Packs/Day Years Used Date Smoking Tobacco: Never Tobacco Cessation:Counseling Given: No Alcohol Use Standard Drinks/Week Comments Yes 0 [...] Don't know 02/19/2022 10 :30 AM EDT Last Filed Vital Signs Vital Sign Reading Time Taken Comments Blood Pressure 138/90 03/02/2025 10:13 AM EST Pulse 82 03/02/2025 9:37 AM EST Temperature 36.7 C (98 F) 12/19/2023 10:05 AM EDT Respiratory Rate 19 03/02/2025 9:37 AM EST Oxygen Saturation 98% 03/02/2025 9:37 AM EST Inhaled Oxygen Concentration - - Weight 92.5 kg (204 lb) 03/02/2025 9:37 AM EST Height 160 cm (5' 3 ) 03/02/2025 9:37 AM EST Body Mass Index 36.14 03/02/2025 9:37 AM EST Plan of Treatment Upcoming Encounters Date Type Department Care Team (Late st Contact Info) Description 03/09/2025 11:00 AM EST Procedure Visit [facility] [address] [place] [address] Susan Kim MD [address] [place] [address] 03/15/2025 9:15 AM EST Office Visit [facility] [address] [place] [address] Calin Vega MD [address] [place] [address] Health Maintenance Due Date Last Done Comments CT Colonography 1959 FIT DNA/Cologuard 1959 FIT 1959 FOBT 1959 Lipid Panel 1959 Sigmoidoscopy 1959 Pap Smear 1980 Mammogram 1999 Pneumococcal Vaccine: 50+ Years (1 of 1 - PCV) 2009 Zoster Vaccines (1 of 2) 2009 Cervical Cancer Screening 05/22/2021 HPV/Cotest 05/22/2021 05/22/2016 Colonoscopy 03/22/2022 03/22/2017 Colorectal Cancer Screening 03/22/2022 COVID-19 Vaccine (3 - 2024-2 6 season) 2024 04/03/2022, 03/13/2022 SDOH Screening 11/09/2025 11/09/2024 Alcohol/Substance Use Screening 03/02/2026 03/02/2025 Depression Screening 03/02/2026 03/02/2025, 03/02/2025 Tobacco Screening 03/02/2026 03/02/2025 DTaP/Tdap/Td Vaccines (3 - T d or Tdap) 07/01/2031 06/30/2021, 08/29/2019, 03/22/2007 RSV Patients and Patients Aged 60 years or older (1 - 1-dose 75+ series) 2034 Hepatitis C Screening Completed 08/27/2022 Influenza Vaccine Completed 03/02/2025, 03/13/2022 HIB Vaccines Aged Out No longer eligi ble based on patient's age to complete this topic HPV Vaccines Aged Out No longer eligi ble based on patient's age to complete this topic Hepatitis A Vaccines Aged Out No long er eligible [...] patient's age to complete this topic Meningococcal Vaccine Aged Out No maddy neil eligible based on patient's age to complete this topic RSV under 20 months Aged Out No longe r eligible based on patient's age to complete this topic Rotavirus Vaccines Aged Out No longer eligible based on patient's age to complete this topic Procedures Procedure Name Priority Date/Time Associated Diagnosis Comments CT ANGIOGRAM ABDOMEN PELVIS W CONTRAST Routine 01/12/2025 3:33 PM EDT ECG 12-LEAD Routine 01/12/2025 11:49 AM EDT HEPATITIS C AB W/REFL TO HCV RNA, QN, PCR Routine 08/27/2022 9:09 AM EDT Alcohol use disorder, moderate, in early remission (CMS/HCC) HM COLONOSCOPY Routine 03/22/2017 ZZZ HISTORICAL HPV MRNA E6/E7 Routine 05/22/2016 11:30 AM EST from Last 3 Months or Most Recently Relevant to Health Maintenance Results * CT ANGIOGRAM ABDOMEN PELVIS W CONTRAST (01/12/2025 3:33 PM EDT) Anatomical Region Laterality Modality Body, Pelvis, Abdomen Computed T omography Historical Provider IMG CT PROCEDURES Final R esult * ECG 12 lead (01/12/2025 11:49 AM EDT) Historical Provider ECG ORDERABLES Final Res ult * Hepatitis C Antibody with Reflex to HCV, RNA, Quantitative, Real-Time PCR (08/27/2022 9:09 AM EDT) Hepatitis C Antibody NON-REACT SUDHEER NON-REACT SUDHEER [employer] Index 0.05 <1.00 [employer] Comment: HCV antibody was non-reactive. There is no laboratory evidence of HCV infection. In most cases, no further action is required. However, if recent HCV exposure is suspected, a test for HCV RNA (test code 98331) is suggested. For additional information please refer to http://EyeJot.coJuvo/faq/AHR38y9 (This link is being provided for informational/ educational purposes only.) Blood Venous blood specimen / Unknown 08/27/2022 9:09 AM EDT 08/27/2022 9:09 AM EDT Calin Vega MD LAB BLOOD ORDERABLES Final Resul t [facility] [address], [place] [address] [employer] [facility] [facility] [address] [place] [address] * Hm Colonoscopy (03/22/2017) Colonoscopy Normal Normal Narrative Karen Carter - 03/22/2017 Recommended 5 year follow up due to tubular adenoma Historical Provider HEALTH MAINTENANCE Final Result * HPV mRNA E6/E7 (05/22/2016 11:30 AM EST) HPV mRNA E6/E7 Not Detected NOT DETECTED [facility] [employer] Comment: This test was performed using the APTIMA(R) HPV Assay ([employer] This assay detects E6/E7 viral messenger RNA (mRNA) from 14 high-risk HPV types (16,18,31,33,35,39,45,51, 52,56,58,59,66,68). For additional information please refer to: http://EyeJot.coJuvo/faq/UIR233t7 (This link is being provided for informational/ educational purposes only.) Test Performed by Yamini Pereira, [employer] Kaylee [facility], [address] [place] [address] Quinn Rascon M.D., Ph.D., Director of Laboratories , [place] [id number] Please note: Effective 01/02/2016, HPV testing will be performed using [employer]'s APTIMA test which targets mRNA. Detecting mRNA instead of DNA, as in older methods, offers significant improvements in specificity. 05/22/2016 11:3 0 AM EST us Shivani Posada CNM HISTORICAL/NON ORDERABLE LABS Final Result [facility] [address] from Last 3 Months or Most Recently Relevant to Health Maintenance [place] [address] [place] [address] MEDICARE ADVANTAGE HMO Care Teams Client Application Support Engineer Relationship Specialty Start Date End Date Fang Young MD [address] [place] [id number] PCP - General Internal Medicine 10/17/15
--- OUTSIDE RECORDS SUMMARY | 2025-03-02 11:48 | XMS_ITS | Encounter Summary ---
Author Organization [employer] Address [address] [facility] [address] [place] [address] Care Team Providers Care Marketing Communications Specialist Name Role Phone Fang Young MD Primary Care Provider [phone] Encounter Details Date Type Department Care Team (Latest Contact Info) Description 03/02/2025 Travel Social History Tobacco Use Types Packs/Day Years [facility] [address] [place] [address] Susan Kim MD [address] [place] [address] 03/15/2025 9:15 AM EST Office Visit [facility] [address] [place] [address] Calin Vega MD [address] [place] [id number] documented as of this encounter Visit Diagnoses Not on filedocumented in this encounter Additional Health Concerns Assessment Noted Time PHQ-9 Depression Total Score: 1 03/02/20 25 10:02 AM EST documented as of this encounter Care Teams Marketing Communications Specialist Relationship Specialty Start Date End Date Fang Young MD [address] [place] [address] PCP - General Internal Medicine 10/17/15 documented as of this encounter
--- OUTSIDE RECORDS SUMMARY | 2025-03-02 11:48 | XMS_ITS | Encounter Summary ---
Author Organization [employer] Address [address] [facility] [address] [place] [address] Care Team Providers Care Heating Unit Mechanic Name Role Phone Fang Young MD Primary Care Provider [phone] Encounter Details Date Type Department Care Team (Late st Contact Info) Description 01/15/2025 Orders Only [facility] [address] [place] [address] ProviderShelbie MD Social History Tobacco Use Types [...] Description 03/09/2025 11:00 AM EST Procedure Visit [facility] [address] [place], [place] [phone] Susan Kim MD [address] [place], [place] [phone] 03/15/2025 9:15 AM EST Office Visit [facility] [address] [place], [place] [phone] Calin Vega MD [address] [place] [address] [phone] documented as of this encounter Procedures Procedure Name Priority Date/Time Associated Diagnosis Comments ECG 12-LEAD Routine 01/12/2025 11:49 AM EDT documented in this encounter Results * ECG 12 lead (01/12/2025 11:49 AM EDT) us Historical Provider ECG ORDERABLES Final Res ult documented in this encounter Visit Diagnoses Not on filedocumented in this encounter Additional Health Concerns Assessment Noted Time PHQ-9 Depression Total Score: 8 08/28/19 23 11:00 AM EDT documented as of this encounter Care Teams Heating Unit Mechanic Relationship Specialty Start Date End Date Fang Young MD [address] [place], [place] [phone] PCP - General Internal Medicine 10/17/15 documented as of this encounter
--- OUTSIDE RECORDS SUMMARY | 2025-03-02 11:48 | XMS_ITS | Encounter Summary ---
Author Organization [facility] [employer] Address [address] [facility] [address] [place] [address] Care Team Providers Care Nitroglycerin Distributor Name Role Phone Fang Young MD Primary Care Provider [phone] Reason for Visit * Reason Comments Med Refill Encounter Details Date Type Department Care Team (Late Contact Info) Description 09/22/2022 Refill [facility] [address] [place], [place] [phone] Char Kelsey MD [address] [place] [address] Social History Tobacco Use Types Packs/Day Years Used Date Smoking Tobacco: Unknown Alcohol Use Standard Drinks/Week Comments Yes 0 (1 standard drink = 0.6 oz pur e alcohol) Depression Answer Date Recorded Patient Health Questionnaire-9 Score 8 08/27/2022 Depression Answer Date Recorded Patient Health Questionnaire-2 Score 3 08/27/2022 Comments Unknown Sex and Gender Information Value Date Recorded Sex Assigned at Female 02/19/2022 10:30 AM EDT Legal Sex Female 10:30 AM EDT Gender Identity Female 02/19/2022 10:30 AM EDT Sexual Orientation Don't know 02/19/2022 10 :30 AM EDT COVID-19 Exposure Response Date Recorded In the last 10 days, have yo u been in contact with someone who was confirmed or suspected to have Coronavirus/COVID-19? No / Unsure 08/31/2022 10:35 AM EDT documented as of this encounter Plan of Treatment Upcoming Encounters Date Type Department Care Team (Late Contact Info) Description 03/09/2025 11:00 AM EST Procedure Visit [facility] [address] [place], [place] [phone] Susan Kim MD [address] [place] [address] 03/15/2025 9:15 AM EST Office Visit [facility] [address] [place], [place] [phone] Calin Vega MD [address] [place], [place] [phone] documented as of this encounter Visit Diagnoses Not on filedocumented in this encounter Additional Health Concerns Assessment Noted Time PHQ-9 Depression Total Score: 8 08/28/19 23 11:00 AM EDT documented as of this encounter Care Teams Nitroglycerin Distributor Relationship Specialty Start Date End Date Fang Young MD [address] [place] [address] PCP - General Internal Medicine 10/17/15 documented as of this encounter
[2025-03-02 14:12] LABS: MANUAL DIFF FLAG NO
[2025-03-02 14:18] LABS: Hematocrit 44.0 % (37.0-47.0); Hemoglobin 14.0 g/dl (12.0-16.0); Imm Gran Abs Auto 0.03 X10*3/uL (0.00-0.03); Imm Gran Pct Auto 0.5 % (0.0-0.4); Lymphocytes Absolute Auto 1.6 X10*3/uL (1.2-4.9); Mean Corpuscular HGB Conc 31.8 g/dl (31.0-35.0); Mean Corpuscular Hemoglobin 32.2 pg (27.0-33.0); Mean Corpuscular Volume 101.1 fL (80.0-98.0); NRBC Abs Auto 0.000 X10*3/uL (0.0-0.012); NRBC Pct Auto 0.0 /100WBC (0.0-0.2); Platelet Count 356 X10*3/uL (160-400); Red Blood Count 4.35 X10*6/uL (4.20-5.50); White Blood Count 6.4 X10*3/uL (4.8-10.8)
[2025-03-02 14:51] LABS: Alanine Aminotransferase 28 U/L (0-31); Albumin Level 4.8 g/dL (3.5-5.0); Alkaline Phosphatase 103 U/L (39-117); Anion Gap 14 (12-20); Aspartate Amino Transferase 25 U/L (5-31); Blood Urea Nitrogen 16 mg/dL (9-16); Calcium 10.3 mg/dL (8.4-10.2); Carbon Dioxide 26 mmol/L (22-29); Chloride 103 mmol/L (96-108); Cholesterol 258 mg/dL (<200); Estimated Glomerular Filt Rate 57; HDL Cholesterol 43 mg/dL (>40); Magnesium 1.8 mg/dL (1.6-2.6); Potassium 4.2 mmol/L (3.3-5.1); Sodium 139 mmol/L (135-145); Total Protein 7.9 g/dL (6.5-8.0); Triglycerides 270 mg/dL (<150)
[2025-03-02 15:26] LABS: Folate 4.3 ng/mL (> or = 4.0); Vitamin B12 259 pg/mL (200-900)
== END 2025-03-02 10:14 | disposition home or self-care (01) ==
LOC: HO.CHCLDS 10:13
PROVIDERS: Visit Provider Internal Medicine
DX: I10 Essential (primary) hypertension (principal); F10.21 Alcohol dependence, in remission
CPT/HCPCS: 36415; 80053; 80061; 82607; 82746; 83735; 84443; 85025

== ENCOUNTER 2025-03-15 09:10 | Outpatient (REF) | payer MEDICARE, SELFPAY ==
[2025-03-15 15:29] LABS: Parathyroid Hormone Intact 120.0 pg/mL (8.7-77.1)
== END 2025-03-15 09:11 | disposition home or self-care (01) ==
LOC: HO.CHCLDS 09:10
PROVIDERS: Visit Provider Internal Medicine
DX: R73.09 Other abnormal glucose (principal); E83.52 Hypercalcemia
CPT/HCPCS: 36415; 82947; 83036; 83970